=== PATIENT | female | born 1960 | race Caucasian/White ===

== ENCOUNTER 2022-08-05 06:11 | Day surgery (SDC) | payer OTHER, SELFPAY ==
[2022-08-05] VITALS (8 sets, daily range): BP systolic 108–135; BP diastolic 62–83; PULSE 66–77; RESP 14–16; TEMP 36.9; O2SAT 96–100; BMI 20.5
[2022-08-05] MEDS: lidocaine HCL 2 % MULTIDOSE 20 ML VIAL 7 ML INJECTION (07:16)
[2022-08-05] MEDS: BUPIVACAINE 0.5% 30 ML 5 ML INJECTION (07:16)
--- NOTE | 2022-08-05 07:34 | P.ORPRC_ITS ---
Procedure Note Date of procedure: 08/05/22 Procedure: Preop diagnosis: Left thumb stenosing tenosynovitis Postop diagnosis: Left thumb stenosing tenosynovitis Procedure: Left thumb A1 jai release Anesthesia: Local Surgeon: Jairo Ibarra MD trade sales assistant: Mary Og PA-C EBL: 0 mL Complications: None Specimens: None Drains: None Preoperative antibiotics: None Indications: The patient has a history of left thumb painful catching and locking. Despite appropriate non operative management including flexor tendon sheath corticosteroid injections they continue to have symptoms. Operative intervention was recommended. The risks, benefits alternatives and expected outcomes were discussed in detail. These included but were not limited to: Infection, bleeding, injury to blood vessel or nerve, venous thromboembolism. All questions were answered to their satisfaction. The patient was placed supine on the operating room table. Local anesthesia was established with 0.5% Marcaine without epinephrine and 2% lidocaine without epinephrine. The hand was prepped and draped in usual sterile fashion. The limb was elevated the forearm pneumatic tourniquet was inflated to 250 mm of mercury. A transverse incision was made in the MP flexion crease of the thumb. Subcutaneous dissection was taken through the palmar fascia to the flexor tendons with the tenotomy scissors. The A1 jai was released with the 15 blade and the tenotomy scissors. The edges of the A1 jai were sharply resected. Active flexion and extension of the thumb shows no catching or locking, no bowstringing of the flexor tendons. The wound was closed with interrupted nylon sutures. A dry dressing was applied the tourniquet was released. Sponge and needle counts were correct x 2. The patient tolerated the procedure well, there were no apparent complications. They were sent to same day surgery in satisfactory condition. Plan: Use of the hand as tolerates. Discontinue the intraoperative dressing on postoperative day 3 and may get the wound wet as tolerates. Follow up in the office in 2 weeks for a wound check and suture removal.
== END 2022-08-05 08:05 | disposition home or self-care (01) ==
PROVIDERS: Visit Provider Orthopaedic Surgery
PROC: (CPT 26055; principal; 2022-08-05 07:15)
DX: M65.312 Trigger thumb, left thumb (principal); M65.842 Other synovitis and tenosynovitis, left hand
CPT/HCPCS: 26055; J3490

== ENCOUNTER 2024-06-13 09:10 | Emergency (ER) | payer OTHER, SELFPAY ==
[2024-06-13 09:23] VITALS: BP 137/88; PULSE 98; RESP 18; TEMP 37.2; O2SAT 99; BMI 20.1
[2024-06-13] MEDS: dexAMETHasone 10 MG/ML inj PO (09:52)
[2024-06-13 10:02] LABS: Strep A DNA Probe* NOT DETECTED (Not Detectd)
--- OUTSIDE RECORDS SUMMARY | 2024-06-13 10:11 | XMS_ITS | Clinical Summary ---
Author Organization [facility] Address [address] [place] [address] Care Team Providers Care Technical Delivery Manager Name Role Phone Jeremi ALEGRIA MD, Elkin Gage Primary Care Provider [phone] Source Comments You are receiving this document as you are listed as the primary care provider,follow-up provider, or the patient has been referred to you for consultation.This is in compliance with the Medicare and[facility] EHR Incentive Program,which states Providers who transition their patient to another setting of careor provider of care or refers their patient to another provider of care shouldprovide summary care record for each transition of care or referral. [facility] Allergies Active Allergy Reactions Criticality Noted Date Comments Amoxicillin-Pot Clavulanate Nausea 07/09/20 15 Medications No known medications Encounters Date Type Department Care Team Description 06/11/2024 silver Hernadez [phone] from Last 3 Months Social History Tobacco Use Types Packs/Day Years Used Date Smoking Tobacco: Never Sex and Gender Information Value Date Recorded Sex Assigned at Not on file Gender Identity Not on file Sexual Orientation Not on file Plan of Treatment Health Maintenance Due Date Last Done Comments Cervical Cancer Screening Due 1961 Colon Cancer Screening Plan Due 1961 Hep C Screening (Preventive Services) 1961 Mammogram 1961 HIV Screening (Preventive Services) 1977 Adult Preventive Visit 12/19/1979 Cholesterol 2006 Zoster/Shingles (1 of 2) 12/19/2011 COVID-19 Vaccine ( season) 2024 10/31/2020, 10/09/2020 Influenza (#1) 2024 07/07/2018, 07/12, 08/08/2017, Additional history exists DTaP/Tdap/Td (2 - Tdap) 08/29/2028 08/29/19, 07/24/2007, 03/11/1991 RSV (1 - 1-dose 75+ series) 2036 HepA Aged Out 03/15/2008 No longer eligi ble based on patient's age to complete this topic MCV4 Aged Out 03/15/2008 No longer eligi ble based on patient's age to complete this topic HepB Aged Out No longer eligi ble based on patient's age to complete this topic Hib Aged Out No longer eligi ble based on patient's age to complete this topic IPV (Polio) Aged Out No longer eligi ble based on patient's age to complete this topic Infant RSV Aged Out No longer eligi ble based on patient's age to complete this topic Pneumococcal Aged Out No longer eligi ble based on patient's age to complete this topic Care Teams Technical Delivery Manager Relationship Specialty Start Date End Date Elkin Blood III, MD [address] [id number] PCP - General 10/12/10
--- OUTSIDE RECORDS SUMMARY | 2024-06-13 10:11 | XMS_ITS | Encounter Summary ---
[facility] Address [address] [place] [address] Care Team Providers Care Copy Coordinator Name Role Phone Jeremi ALEGRIA MD, Elkin Gage Primary Care Provider [phone]- [phone] Encounter Details Date Type Department Care Team (Late st Contact Info) Description 06/11/2024 becka Scardssánchez [phone] Social History Tobacco Use Types Packs/Day Years Used Date Smoking Tobacco: Never Sex and Gender Information Value Date Recorded Sex Assigned at Not on file Gender Identity Not on file Sexual Orientation Not on file documented as of this encounter Progress Notes * FAMILY MEDICINE, BECKA PROVIDER - 06/11/2024 12:19 PM CST Becka Addendum From Provider Visit Date June 11, 2024 Addendum Date June 11, 2024 Jacquiisaac Nelosnman Date of : 62 Provider Orin Jean-Baptiste, Physician Executive Manager Note From Provider Jose Osman! Thank you for taking the time to reach out to us today. I understand that in addition to the 7 days of cold and sinus symptoms, you have also been experiencing a cough and new fever [id number] over the past 3-4 days. Though your cold symptoms are progressing into a viral sinusitis, Femi concerned for a possible pneumonia developing in your chest with the fever present and the circulating pneumonia that is rampant at this time. Please present to a clinic setting for a full lung evaluation at this time. I have requested a service fee recovery for you today so you are not charged for your visit here with Becka. Take good care! XAVI Sr [place] BAKER * FAMILY MEDICINE, BECKA PROVIDER - 06/11/2024 7:37 AM CST Becka Treatment Plan Diagnosis Viral Sinusitis Visit Date June 11, 2024 Jacqui Shelton Date of : 62 Provider Orin Jean-Baptiste, Physician Executive Manager Note From Provider Jose Osman! I'm sorry to hear you haven't been feeling well! Based on your symptoms and the length oftime you have had them, you have a viral sinus infection which can be miserable. Viral infections typically start with clear, watery nasal discharge. After a day or 2, it is normal for the nasal discharge to become thicker and white, yellow, or green. Most sinus infections will feel worse for up to5 days from when the sinus pressure and thick drainage start, then ease up and start to resolve without the need for an antibiotic between days 7-10 from the start of the sinus symptoms. To further help relieve symptoms, start the high dose ibuprofen, 800 mg every 8 hours, around the clock for the next 3 days. Continue taking mucinex with plenty of fluids to keep your mucus thin and easier to clear. Review the treatment plan for additional care tips and instructions. You should start to feel improvement in your symptoms in the next 5 days of continued cares as outlined, if symptoms worsen or do not improve, feel free to request a follow up at that time, certainly sooner with any additional questions or concerning symptoms. I hope you get some relief soon! XAVI Sr Treatment Plan To get you feeling better, I recommend using specific hcve-yif-tyvpvre medications to target yoursymptoms, which may change management specialist time as your immune system fights off the virus and your body heals. Ifyour symptoms are not starting to improve in about a week, or if you have questions, selectHelp to R equest a follow-up, and we??l discuss next steps. Order(s) None Treatment Plan Self Care Tip Topics Symptom Relief with Ibuprofen Promote Mucus Drainage Stay Hydrated Warm Packs Steam Therapy Irrigate Your Sinuses What to Expect Let?? get you feeling better by managing your symptoms while your body fights the virus. We??lfocuson reducing inflammation, which will help relieve sinus pain and pressure, and thinning anddrainingthe mucus your body is making to fight the infection. Keep in mind that it?? normal for thecolor ofyour mucus to change while your immune system is fighting the virus. By following the recommendations in the Treatment tab, your symptoms should start to improve in about aweek. If you have questionsabout your treatment plan, select Help to Request a follow-up,and we??l discuss next steps. What to Watch Out For Give us a call immediately if you experience: ??? Vision changes ??? Redness occurring in the face ??? Worsening pain ??? Fever higher than 103.0 degrees Fahrenheit My Conditions, Orders, Allergies as of June 11, 2024 Standard condition list Cataracts Current orders fluconazole (fluconazole) vitamin D3-folic acid (vitamin D3-folic acid) Allergies amoxicillin (amoxicillin), oral amoxicillin (amoxicillin), oral [employer] Information [facility] We are an online clinic open 31/01. If you have any questions or comments about this visit, please call or email [email or web address]. [place] BAKER documented in this encounter Plan of Treatment Not on file documented as of this encounter Visit Diagnoses Diagnosis Acute sinusitis, unspecified documented in this encounter Care Teams Copy Coordinator Relationship Specialty Start Date End Date Elkin Blood III, MD [address] [id number] PCP - General 10/12/10 documented as of this encounter
--- NOTE | 2024-06-13 10:24 | ED.GENADULT ---
HPI - General Adult General Chief complaint: Sore Throat Stated complaint: Sore throat, cough Time Seen by Provider: 06/13/24 09:20 History of Present Illness HPI narrative: This patient comes in reporting upper respiratory symptoms for the past couple weeks. She has had a cough that is seeming to be occurring less a. She has had a sore throat throughout this time. She does not report any measured fevers. She was seen a couple days ago and had a nasal swab that was negative for COVID, influenza, and RSV. She does not report any shortness of breath. She states that her sore throat hurts significantly where it is difficult to sleep at night. Related Data Previous Rx's ?Medication ?Instructions ?Recorded albuterol sulfate 90 mcg/actuation 2 puff inhalation Q4-6H PRN 06/12/24 aerosol inhaler shortness of breath or wheezing #6.7 grams ketorolac 10 mg tablet 10 mg PO Q8H 5 days #15 tabs 06/13/24 tramadol 50 mg tablet 50 mg PO Q6H PRN pain #15 tabs 06/13/24 Allergies Allergy/AdvReac Type Severity Reaction Status Date / Time amoxicillin AdvReac upset Verified 06/13/24 09:29 stomach Review of Systems Status of ROS: Reports: 10 or more systems reviewed and unremarkable except as noted in History and below Narrative: Constitutional: No fevers, no weight gain or loss. Eyes: No discharge. No vision changes. HENT: Sore throat with congestion. Cardiovascular: No chest pain, no palpitations. Respiratory: No shortness of breath, no wheezes, no cough. Gastrointestinal: No abdominal pain, no vomiting, no diarrhea. Genitourinary: No dysuria, no hematuria. Musculoskeletal: Normal range of motion. Skin: No rashes, no pruritis. Neurological: No dizziness, weakness, sensory change, speech change. Endo/Heme/Allergies: No bruising or bleeding. No polydipsia. Pysch: no suicidality, no anxiety, no insomnia. All other systems reviewed and are negative. [facility] Medical History No active medical problems Surgical History Trigger thumb, left thumb (08/05/22) ?M65.312 - Trigger thumb, left thumb (ICD-10) H/O cataract extraction ?Z98.49 - Cataract extraction status, unspecified eye (ICD-10) History of carpal tunnel release ?Z98.890 - Other specified postprocedural states (ICD-10) Social History Smoking Status: Never smoker Do you use any of these nicotine containing products: None How often do you have a drink containing alcohol: never How often do you have six or more drinks on one occasion: Never AUDIT-C Alcohol total score: 0 Non-prescribed substance use: denies use Exam Narrative: Exam Narrative: Constitutional: Well-developed, well-nourished, no acute distress. HEENT: Normocephalic, atraumatic. Oropharynx has mild erythema without exudate. No tonsillar hypertrophy. Tympanic membranes appear normal bilaterally. Neck: Normal range of motion. Nontender. Supple. Heart: Regular. No murmurs. Normal rate. Intact distal pulses. Lungs: Clear to auscultation. No chest discomfort. No wheezes, rhonchi, or rales. Abdomen: Normal bowel sounds. Nontender. No rebound tenderness. Genitalia: Deferred. Back: No midline tenderness. Normal range of motion. Extremities: Normal range of motion. No injury. Skin: Intact. No rash. Warm. No erythema or pallor. Neurologic: No altered sensation. No weakness. Alert and oriented. Psychiatric: No suicidality. No anxiety or depression. No insomnia. Nursing notes and vitals signs are reviewed. Const: Vital Signs, click to edit/add: Vital Signs - 24 hr 06/13/24 09:23 Temperature 98.9 F Pulse Rate [Right Pulse Oximeter] 98 Respiratory Rate 18 Blood Pressure [Ri ght Upper Arm] 137/88 Pulse Oximetry 99 Oxygen Delivery Me thod Room Air Course Vital Signs Vital signs: Initial Vital Signs Temperature 98.9 F 06/13/24 09:23 Temperature Source Temporal Artery Scan 06/13/24 09:23 Pulse Rate 98 06/13/24 09:23 Pulse Rhythm Regular 06/13/24 09:23 Respiratory Rate 18 06/13/24 09:23 Blood Pressure 137/88 06/13/24 09:23 Blood Pressure Mean 104 06/13/24 09:23 Blood Pressure Position Sitting 06/13/24 09:23 Pulse Oximetry 99 06/13/24 09:23 Oxygen Delivery Method Room Air 06/13/24 09:23 Vital Signs Temperature 98.9 F 06/13/24 09:23 Pulse Rate 98 06/13/24 09:23 Respiratory Rate 18 06/13/24 09:23 Blood Pressure 137/88 06/13/24 09:23 Pulse Oximetry 99 06/13/24 09:23 Oxygen Delivery Method Room Air 06/13/24 09:23 Temperature 98.9 F 06/13/24 09:23 Pulse Rate 98 06/13/24 09:23 Respiratory Rate 18 06/13/24 09:23 Blood Pressure 137/88 06/13/24 09:23 Pulse Oximetry 99 06/13/24 09:23 Oxygen Delivery Method Room Air 06/13/24 09:23 Medications Administered Medications: Discontinued Medications Generic Name Dose Route Start Last Admin Trade Name Freq PRN Reason Stop Dose Admin Dexamethasone 10 mg 06/13/24 09:46 06/13/24 09:52 Dexamethasone 10 Mg/Ml Inj PO 06/13/24 09:47 10 mg ONCE ONE Administration Medical Decision Making MDM Narrative Medical decision making narrative: This patient comes in reporting upper respiratory symptoms for the past couple weeks. Her most notable symptom is a severe sore throat. Strep test is obtained and returns negative today. Most likely this patient is encountering symptoms related to a virus. She did receive an oral dose of dexamethasone 10 mg. I also provided prescriptions for Toradol and tramadol for symptomatic relief. I encouraged use of [id number] medicines also as needed and directed. A return to work note is provided. Lab Data Labs: Lab Results 06/13/24 Range/Units 09:30 Group A Strep DNA NOT DETECTED (Not Detectd) Discharge Plan Discharge Clinical Impression: Upper respiratory infection Patient Disposition: Home, Self-Care Condition: Stable Additional Instructions: Take medications as needed and directed for symptomatic relief. Follow up with MD return if worsening. Prescriptions: New tramadol 50 mg tablet 50 mg PO Q6H PRN (Reason: pain) Qty: 15 0RF ketorolac 10 mg tablet 10 mg PO Q8H 5 Days Qty: 15 0RF No Action albuterol sulfate 90 mcg/actuation HFA aerosol inhaler 2 puff inhalation Q4-6H PRN (Reason: shortness of breath or wheezing) Qty: 6.7 0RF Follow Up/Referrals: Provider,Not a Local [Primary Care Provider] - Stand Alone Forms: [employer] Info Instructions
== END 2024-06-13 10:36 | disposition home or self-care (01) ==
PROVIDERS: Emergency Provider Emergency Medicine Emergency Medical Services
DX: J06.9 Acute upper respiratory infection, unspecified (principal)
CPT/HCPCS: 87651; 99283; 99284; J1100

== ENCOUNTER 2024-06-28 11:28 | Emergency (ER) | payer OTHER, SELFPAY ==
[2024-06-28] VITALS (8 sets, daily range): BP systolic 117; BP diastolic 82; PULSE 76–100; RESP 20; TEMP 37.6; O2SAT 98–100; BMI 20.1
--- NOTE | 2024-06-28 12:04 | ED_ITS ---
HPI - SOB/Dyspnea General Time Seen by Provider: 12:04 Date Seen: 06/28/24 Chief Complaint: Shortness of Breath/Dyspnea Stated Complaint: Pneumonia/Dizziness Time Seen by Provider: 06/28/24 12:03 Source: patient, RN notes reviewed and old records reviewed Mode of arrival: ambulatory Limitations: no limitations History of Present Illness HPI Narrative: This 63-year-old female is coming in with concerns of ongoing pneumonia, not improving, feeling dizzy. She does have underlying asthma. She has been seen multiple times, was started on a Z-Ted, has been taking prednisone in using albuterol nebulizers. She does note work has extended hours, she has been having to work. She started with COVID earlier this fall in April, was coughing to May. [place] good for couple weeks and then came down with this illness. She is still coughing, still having fevers and chills, feels fatigued, states she feels worse, does feel short of breath. No chest pain. Had negative triple swab on 06/11/2024, negative strep in ED 06/13/24 and was given single dose of 10mg dexamethasone for sore throat (viral), also received Toradol and Ultram prescriptions. Was in UC 06/23/24, had negative chest imaging, placed on Zpak which she started on Tuesday. MD elicited complaint: shortness of breath and cough Related Data Previous Rx's ?Medication ?Instructions ?Recorded albuterol sulfate 90 mcg/actuation 2 puff inhalation Q4-6H PRN 06/12/24 aerosol inhaler shortness of breath or wheezing #6.7 grams ketorolac 10 mg tablet 10 mg PO Q8H 5 days #15 tabs 06/13/24 tramadol 50 mg tablet 50 mg PO Q6H PRN pain #15 tabs 06/13/24 albuterol sulfate 90 mcg/actuation 2 puff inhalation Q4-6H PRN 06/23/24 aerosol inhaler shortness of breath or wheezing #1 packet azithromycin 250 mg tablet See Rx Instructions PO .COMPLEX #6 06/23/24 (Zithromax Z-Ted) tabs codeine 10 mg-guaifenesin 100 mg/5 5 - 10 ml PO Q6H PRN cough #120 mL 06/23/24 mL oral liquid albuterol sulfate 2.5 mg/3 mL 2.5 mg (3 mL) inhalation Q4-6H PRN 06/28/24 (0.083 %) solution for nebulization #180 mL cefdinir 300 mg capsule 300 mg PO BID #20 caps 06/28/24 prednisone 20 mg tablet 20 mg PO BID #10 tabs 06/28/24 Allergies Allergy/AdvReac Type Severity Reaction Status Date / Time amoxicillin AdvReac upset Verified 06/28/24 14:03 stomach Review of Systems Status of ROS: Reports: 6 or more systems reviewed and unremarkable except as noted in History and below PFSH PFSH Medical History (Reviewed 06/11/24 @ 12:59 by Lady Fernandez, SALES [employer], [employer]) No active medical problems Surgical History Trigger thumb, left thumb (08/05/22) ?M65.312 - Trigger thumb, left thumb (ICD-10) H/O cataract extraction ?Z98.49 - Cataract extraction status, unspecified eye (ICD-10) History of carpal tunnel release ?Z98.890 - Other specified postprocedural states (ICD-10) Social History Smoking Status: Never smoker Do you use any of these nicotine containing products: None How often do you have a drink containing alcohol: never How often do you have six or more drinks on one occasion: Never AUDIT-C Alcohol total score: 0 Non-prescribed substance use: denies use Exam Const: Vital Signs, click to edit/add: Vital Signs - 24 hr 06/28/24 11:36 06/28/24 13:06 06/28/24 13:15 Temperature 99.7 F H Pulse Rate 78 90 Pulse Rate [Pulse Oximeter] 100 Respiratory Rate 20 Blood Pressure [Ri ght Upper Arm] 117/82 Pulse Oximetry 100 100 99 Oxygen Delivery Me thod Room Air 06/28/24 13:30 06/28/24 13:45 06/28/24 14:01 Temperature Pulse Rate 80 77 83 Pulse Rate [Pulse Oximeter] Respiratory Rate Blood Pressure [Ri ght Upper Arm] Pulse Oximetry 100 99 99 Oxygen Delivery Me thod 06/28/24 14:18 06/28/24 14:30 Temperature Pulse Rate 80 76 Pulse Rate [Pulse Oximeter] Respiratory Rate Blood Pressure [Ri ght Upper Arm] Pulse Oximetry 98 99 Oxygen Delivery Me thod This 63-year-old female is alert, interactive, no apparent distress, looks like she does not feel well. Pupils equal round and reactive, sclera clear. Symmetrical facial function, speech is normal, able to speak in complete sentences. Neck is supple, no adenopathy. Lungs actually are clear with the exception of some rhonchi at right base posteriorly, no tachypnea, no wheezing or crackles noted. CV is regular, no murmur, normal S1-S2, no S3-S4. Documenting provider has reviewed patient's vital signs: yes Course Course ED Course: This 63-year-old female has underlying asthma on ongoing fevers, ongoing cough, shortness of breath. I cannot clear her for PERC rule, will proceed with chest CT with IV contrast. Reviewed with her that the visualization of the lungs from this is much better than any chest x-ray. Do need to consider complicating issues like thromboembolic disease as she cannot clear via PERC rule. She is not hypoxic. Reevaluation(s) Time of Reevaluation #1: 14:38 Reevaluation #1: Have reviewed with patient her CT findings, I have given her copy. She indeed has some right lower lobe infection, no PE. She completed prednisone he yesterday, a Z-Ted yesterday. I think given her findings and ongoing symptoms, dual antibiotic coverage would be indicated. Will give her course of cephalosporin given her intolerance to amoxicillin. I will send in a refill of prednisone which she can take if she has ongoing coughing or with wheezing that should start. She did request a refill of her albuterol nebulization which I will do. Vital Signs Vital signs: Initial Vital Signs Temperature 99.7 F H 06/28/24 11:36 Temperature Source Temporal Artery Scan 06/28/24 11:36 Pulse Rate 100 06/28/24 11:36 Pulse Rhythm Regular 06/28/24 11:36 Respiratory Rate 20 06/28/24 11:36 Blood Pressure 117/82 06/28/24 11:36 Blood Pressure Mean 93 06/28/24 11:36 Blood Pressure Position Sitting 06/28/24 11:36 Pulse Oximetry 100 06/28/24 11:36 Oxygen Delivery Method Room Air 06/28/24 11:36 Vital Signs Temperature 99.7 F H 06/28/24 11:36 Pulse Rate 100 06/28/24 11:36 Respiratory Rate 20 06/28/24 11:36 Blood Pressure 117/82 06/28/24 11:36 Pulse Oximetry 100 06/28/24 11:36 Oxygen Delivery Method Room Air 06/28/24 11:36 Temperature 99.7 F H 06/28/24 11:36 Pulse Rate 76 06/28/24 14:30 Respiratory Rate 20 06/28/24 11:36 Blood Pressure 117/82 06/28/24 11:36 Pulse Oximetry 99 06/28/24 14:30 Oxygen Delivery Method Room Air 06/28/24 11:36 MDM - SOB/Dyspnea Lab Data Attestation: I reviewed the patient's lab results. Labs: Lab Results 06/28/24 06/28/24 06/28/24 Range/Units 12:35 12:35 12:35 WBC 6.24 (4.50-11.00) K/uL RBC 4.29 (4.00-5.20) m/uL Hgb 11.8 L (12.0-16.0) gm/dL Hct 37.0 (33.0-51.0) % MCV 86 (80-100) fL MCH 28 (26-34) pg MCHC 32 (32-36) gm/dL RDW Coeff of Mary 13.4 (11.5-15.5) % Plt Count 305 (140-440) K/uL Neut % (Auto) 62.4 (42.0-72.0) % Lymph % (Auto) 24.8 (20-44) % [place] % (Auto) 10.3 (0.0-11.0) % Eos % (Auto) 1.8 (0.0-7.0) % Baso % (Auto) 0.5 (0.0-3.0) % Neut # (Auto) 3.90 (1.7-7.0) K/uL Lymph # (Auto) 1.55 (0.90-2.90) K/uL [place] # (Auto) 0.60 (0.00-0.90) K/UL Eos # (Auto) 0.11 (0.00-0.50) K/uL Baso # (Auto) 0.03 (0.00-0.30) K/uL Abs Immat Gran (auto) 0.01 (0.00-0.30) K/uL Imm/Tot Granulo (auto) 0.2 % VBG pH 7.465 H (7.32-7.43) VBG pCO2 38 L (40-50) mmHG VBG pO2 63.1 H (25-47) mmHG VBG HCO3 27 (21-28) mmol/L Sodium 136 (135-149) mmol/L Potassium 3.3 L (3.6-5.1) mmol/L Chloride 105 (96-114) mmol/L Carbon Dioxide 26 (20-32) mmol/L Anion Gap 5 L (7-15) mEq/L BUN 9 (7-30) mg/dL Creatinine 0.5 (0.5-1.5) mg/dL Estimated Creat Clear 45.95 Estimated GFR 106 ml/min Glucose 102 (60-115) mg/dL Lactate 0.9 (0.5-1.9) mmol/L Calcium 9.0 (8.4-10.6) mg/dL Total Bilirubin 0.8 (0.1-1.5) mg/dL AST 23 (12-35) U/L ALT 19 (4-35) U/L Alkaline Phosphatase 70 (40-150) U/L Troponin I < 0.01 L Cancelled (0.01-0.04) ng/mL C-Reactive Protein < 0.5 L (0.5-1.0) mg/dL NT-Pro-B Natriuret Pep 227 pg/mL Total Protein 6.6 (6.0-8.3) g/dL Albumin 4.2 (3.3-5.0) g/dL Procalcitonin 0.03 Cancelled (<0.50) ng/mL Imaging Data CT scan - chest: Attestation: I have reviewed the pertinent imaging results. Radiologist's impression: Patient: AMILCAR CHUNG Facility:?[facility] Patient ID:?[id number] Site Patient ID:?[id number]. Site :?[id number] Study:?CT-Chest Angio [facility] 370-06/28/2024 2:09:06 PM Ordering Physician:David Quintero Final Report: INDICATION: Fever. Cough and shortness of breath. Tachycardia. COMPARISON: None available. TECHNIQUE: CT pulmonary angiography with 95 cc of Isovue 370 intravenous contrast. Please note that all CT scans at this facility use dose modulation, iterative reconstruction, and/or weight-based dosing when appropriate to reduce radiation dose to as low as reasonably achievable. FINDINGS: THORAX Pulmonary Arterial Vasculature: Opacification of the pulmonary arterial tree is adequate for assessment of pulmonary embolism. No intraluminal pulmonary arterial filling defect is identified to indicate a pulmonary embolism. Visualized Lower Neck: No lower cervical adenopathy. Lungs: Right lower lobe lateral basilar segment subsegmental bronchial wall thickening and tree-in-bud clustered nodular opacities consistent with acute nonspecific small airways disease. No coalescent consolidation or significant atelectasis. Pleura: No pleural effusion. No pneumothorax. Mediastinum: Thoracic aorta and pulmonary trunk are normal in caliber. Heart and pericardium are without significant findings. Trachea and esophagus are normal in appearance. No mediastinal lymphadenopathy. ABDOMEN Visualized Upper Abdomen: No significant findings. SKELETON AND BODY WALL No acute or significant incidental findings. IMPRESSION: 1. No evidence of pulmonary embolism. 2. Right lower lobe lateral basilar segment subsegmental bronchial wall thickeni ng and tree-in-bud clustered nodular opacities consistent with acute nonspecific small airways disease. No coalescent consolidation or significant atelectasis. Please note that all CT scans at this facility use dose modulation, iterative reconstruction, and/or weight-based dosing when appropriate to reduce radiation dose to as low as reasonably achievable. Dictated by Stephon Zapata MD @ 06/28/2024 2:27:54 PM (Electronic Signature) Discharge Plan Discharge Clinical Impression: Community acquired pneumonia, Asthma Patient Disposition: Home, Self-Care Condition: Stable Instructions: Asthma (ED), Community Acquired Pneumonia (ED) Additional Instructions: Start a new antibiotic today and take as prescribed. Use albuterol nebs per prescription as needed for coughing or shortness of breath/wheezing. Have sent in a prescription for prednisone but think you can hold off on this. If you feel your asthma is worsening, can started. Please seek re-evaluation if there is any concern. Note provided to be off work. Activity Level: Activity as Tolerated Prescriptions: New cefdinir 300 mg capsule 300 mg PO BID Qty: 20 0RF prednisone 20 mg tablet 20 mg PO BID Qty: 10 0RF albuterol sulfate 2.5 mg /3 mL (0.083 %) solution for nebulization 2.5 mg inhalation Q4-6H PRNQty: 180 0RF No Action albuterol sulfate 90 mcg/actuation HFA aerosol inhaler 2 puff inhalation Q4-6H PRN (Reason: shortness of breath or wheezing) Qty: 1 0RF azithromycin [Zithromax Z-Ted] 250 mg tablet See Rx Instructions PO .COMPLEX Qty: 6 0RF Rx Instructions: For 250 mg dose pack: take 500 mg today (day 1), then 250 mg for 4 days (days 2-5) PO codeine-guaifenesin 10-100 mg/5 mL liquid 5 - 10 ml PO Q6H PRN (Reason: cough) Qty: 120 0RF tramadol 50 mg tablet 50 mg PO Q6H PRN (Reason: pain) Qty: 15 0RF ketorolac 10 mg tablet 10 mg PO Q8H 5 Days Qty: 15 0RF albuterol sulfate 90 mcg/actuation HFA aerosol inhaler 2 puff inhalation Q4-6H PRN (Reason: shortness of breath or wheezing) Qty: 6.7 0RF Follow Up/Referrals: Provider,Not a Local [Primary Care Provider] - Stand Alone Forms: General Specific Info Instructions
--- NOTE | 2024-06-28 12:15 | CRLHL7_ITS ---
For Patients: As a result of the Century Cures Act, medical imaging exams and procedure reports are released immediately into your electronic medical record. You may view this report before your referring provider. If you have questions, please contact your health care provider. INDICATION: Fever. Cough and shortness of breath. Tachycardia. COMPARISON: None available. TECHNIQUE: CT pulmonary angiography with 95 cc of Isovue 370 intravenous contrast. Please note that all CT scans at this facility use dose modulation, iterative reconstruction, and/or weight-based dosing when appropriate to reduce radiation dose to as low as reasonably achievable. FINDINGS: THORAX Pulmonary Arterial Vasculature: Opacification of the pulmonary arterial tree is adequate for assessment of pulmonary embolism. No intraluminal pulmonary arterial filling defect is identified to indicate a pulmonary embolism. Visualized Lower Neck: No lower cervical adenopathy. Lungs: Right lower lobe lateral basilar segment subsegmental bronchial wall thickening and tree-in-bud clustered nodular opacities consistent with acute nonspecific small airways disease. No coalescent consolidation or significant atelectasis. Pleura: No pleural effusion. No pneumothorax. Mediastinum: Thoracic aorta and pulmonary trunk are normal in caliber. Heart and pericardium are without significant findings. Trachea and esophagus are normal in appearance. No mediastinal lymphadenopathy. ABDOMEN Visualized Upper Abdomen: No significant findings. SKELETON AND BODY WALL No acute or significant incidental findings. IMPRESSION: 1. No evidence of pulmonary embolism. 2. Right lower lobe lateral basilar segment subsegmental bronchial wall thickening and tree-in-bud clustered nodular opacities consistent with acute nonspecific small airways disease. No coalescent consolidation or significant atelectasis. Please note that all CT scans at this facility use dose modulation, iterative reconstruction, and/or weight-based dosing when appropriate to reduce radiation dose to as low as reasonably achievable. Dictated by Stephon Zapata MD @ 06/28/2024 2:27:54 PM (Electronically Signed)
[2024-06-28 12:42] LABS: Basophils Absolute Auto 0.03 K/uL (0.00-0.30); Basophils Percent Auto 0.5 % (0.0-3.0); Eosinophils Absolute Auto 0.11 K/uL (0.00-0.50); Eosinophils Percent Auto 1.8 % (0.0-7.0); Hemoglobin* 11.8 gm/dL (12.0-16.0); Immature Granulocytes Abs Auto 0.01 K/uL (0.00-0.30); Immature Granulocytes Pct Auto 0.2 %; Lymphocytes Absolute Auto 1.55 K/uL (0.90-2.90); Lymphocytes Percent Auto 24.8 % (20-44); Mean Corpuscular HGB Conc 32 gm/dL (32-36); Mean Corpuscular Hemoglobin 28 pg (26-34); Mean Corpuscular Volume 86 fL (80-100); Monocytes Percent Auto 10.3 % (0.0-11.0); Neutrophils Percent Auto 62.4 % (42.0-72.0); Platelet Count* 305 K/uL (140-440); RDW Coefficient of Variation % 13.4 % (11.5-15.5); Red Blood Count 4.29 m/uL (4.00-5.20); White Blood Count* 6.24 K/uL (4.50-11.00)
[2024-06-28 12:43] LABS: HCO3 VBG 27 mmol/L (21-28); PCO2 VBG 38 mmHG (40-50); PO2 VBG 63.1 mmHG (25-47); pH VBG 7.465 (7.32-7.43)
[2024-06-28 12:46] LABS: Lactate* 0.9 mmol/L (0.5-1.9)
[2024-06-28 12:48] LABS: Slide Review Reflex No
[2024-06-28 13:18] LABS: Albumin* 4.2 g/dL (3.3-5.0); Chloride* 105 mmol/L (96-114); Sodium* 136 mmol/L (135-149)
[2024-06-28 13:19] LABS: Potassium* 3.3 mmol/L (3.6-5.1)
[2024-06-28 13:21] LABS: Alanine Aminotransferase* 19 U/L (4-35); Alkaline Phosphatase* 70 U/L (40-150); Anion Gap 5 mEq/L (7-15); Aspartate Amino Transferase* 23 U/L (12-35); Bilirubin Total* 0.8 mg/dL (0.1-1.5); Carbon Dioxide* 26 mmol/L (20-32); Creatinine* 0.5 mg/dL (0.5-1.5); Est. Creatinine Clearance* 45.95; Estimated Glomerular Filt Rate 106 ml/min; Total Protein* 6.6 g/dL (6.0-8.3)
[2024-06-28 13:22] LABS: Blood Urea Nitrogen* 9 mg/dL (7-30); Glucose* 102 mg/dL (60-115)
[2024-06-28 13:38] LABS: Procalcitonin* 0.03 ng/mL (<0.50)
[2024-06-28 13:40] LABS: C Reactive Protein* < 0.5 mg/dL (0.5-1.0); NT Pro B Type NatriureticPept* 227 pg/mL; Troponin I* < 0.01 ng/mL (0.01-0.04)
== END 2024-06-28 15:09 | disposition home or self-care (01) ==
PROVIDERS: Emergency Provider Family Medicine
DX: J18.9 Pneumonia, unspecified organism (principal); J45.909 Unspecified asthma, uncomplicated; Z78.9 Other specified health status
CPT/HCPCS: 36415; 71275; 80053; 82803; 83605; 83880; 84145; 84484; 85025; 86140; 94761; 99284; Q9967